=== PATIENT | female | born 1990 | race Caucasian/White ===

== ENCOUNTER 2017-12-10 06:22 | Inpatient (IN) | payer MEDICARE, MEDICAID ==
[2017-12-09 12:19] LABS: BASOPHILS 0.1 % (0-2); EOSINOPHILS 0.7 % (0-7); HEMATOCRIT 32.5 % (36.0-48.0); HEMOGLOBIN 10.7 g/dL (12-16); IMMATURE GRANULOCYTES 0.5 % (0-5); LYMPHOCYTES 21.4 % (15-50); MCH 28.5 pg (26.0-34.0); MCHC 32.9 g/dL (31.0-37.0); MCV 86.7 fL (80.0-100.0); MEAN PLATELET VOLUME 11.9 fL (7.4-10.4); MONOCYTES 7.8 % (2-11); NEUTROPHILS 69.5 % (40-80); RBC 3.75 10x6/uL (4.00-5.40); RDW 13.5 % (11.5-14.5); WBC 8.1 10x3/uL (4.8-10.8)
[2017-12-09 12:29] LABS: PLATELET COUNT 179 10x3/uL (130-400)
[~2017-12-10] VITALS: Ht 162.6 cm; Wt 137.0 kg
--- NOTE | ~2017-12-10 | DS ---
PATIENT:ROMEO KING :89 MEDICAL RECORD: [id number] DISCHARGE SUMMARY ADMISSION DATE: 12/10/17 DISCHARGE DATE: DATE OF ADMISSION: 12/10/2017. DATE OF DISCHARGE: 12/12/2017. ADMISSION DIAGNOSES: 1. at term. 2. History of prior section. DISCHARGE DIAGNOSES: 1. Mother delivered at term. 2. History of prior section. 3. Spinal headache. PROCEDURES PERFORMED: 1. Repeat low transverse section. 2. Blood patch (pending). ATTENDING: Domingo Gomez MD. HISTORY OF PRESENT ILLNESS: See the H&P in the chart. SUMMARY OF HOSPITALIZATION: The patient was admitted to the hospital and underwent a section. The patient had multiple attempts for spinal. At the time of discharge, the patient is reporting a headache increased while up and moving. The patient has been evaluated and blood patch is pending. The patient will receive Percocet and Motrin for her postoperative pain. The incision is clean, dry and intact at this time. The patient will follow up in 2 weeks for an incision check at [facility]. Standard post- and postoperative precautions have been reviewed. TRANSINT:[id number] Voice Confirmation ID: [id number] DOCUMENT ID: [id number] DOMINGO GOMEZ MD at 1609 CC: [id number] DICTATION DATE: 12/12/17 1329 CHANGE MANAGEMENT ANALYST: 12/12/17 1342 ADM IN [facility] [place] [id number] [place] [address]
--- NOTE | ~2017-12-10 | OP ---
PATIENT NAME: ROMEO KING MEDICAL RECORD: [id number] :89 LOCATION:[id number] ADMISSION DATE:12/10/17 SURGEON: CONRAD YORK MD DATE OF OPERATION: 12/10/2017 PREOPERATIVE DIAGNOSES: 1. at 39 and 2 weeks gestational age. 2. History of prior section. POSTOPERATIVE DIAGNOSES: 1. Mother delivered at 39 and 2 weeks. 2. History of section. PROCEDURE: Repeat low transverse section. SURGEON: Conrad York MD LITERACY COACH: Dr. Lanier. ANESTHESIA: Spinal, SCREW EYE ASSEMBLER is Renetta Bryant. FINDINGS: Viable , vertex presentation, Apgars 9 and 9, weight 8 pounds 11 ounces. Unremarkable uterus, tubes, and ovaries bilaterally. SPECIMEN REMOVED: Placenta. SPECIMEN DISPOSITION: Discarded. Urine output 200 cc of clear urine. FLUIDS: 2 liters of lactated Ringer's. ESTIMATED BLOOD LOSS: 750 to 800 cc. COMPLICATIONS: None. DRAINS: Crook to gravity. INDICATIONS: The patient is a 27-year-old parous female with a prior history of section. The patient is 39 weeks and 2 days and consented for repeat low transverse section. The patient understands risks and benefits of this procedure as well as limitations. DESCRIPTION OF PROCEDURE: After informed consent was assured, the patient was taken to the operating room where anesthetic was obtained. The patient was placed in a leftward lateral tilt and prepped and draped. An incision was made over the old scar after assessing the adequacy of the anesthetic. This incision was carried down to the underlying layer of the fascia with a scalpel and the fascia opened in the midline. The fascial opening was extended laterally with Ortega scissors and the peritoneum was entered bluntly. Peritoneal opening was extended with Ortega and Metzenbaum scissors. Rectus bellies were and a DeLee all-purpose retractor was inserted. The fascia was dissected free of the rectus bellies prior to entering the abdomen. A low transverse hysterotomy was performed and the was delivered onto the abdomen atraumatically. The cord was doubly clamped and cut and the was passed to the awaiting attendant. Placenta was delivered via Crede maneuver and the uterus was now exteriorized and cleared of all clot and debris. The hysterotomy was closed in OPERATIVE REPORT [id number] CHRISTINE,ROMEO LV a running-locked fashion with #1 chromic. After this had been performed, the uterus was returned to the abdomen and the abdomen was irrigated. Adequate hemostasis was achieved. The peritoneum was reapproximated with a loose stitch of chromic. Rectus bellies were inspected and found to be hemostatic. The looped PDS was now used to close the fascia. Subcutaneous tissues inspected. Bleeding vessels cauterized and the skin reapproximated with a subcuticular stitch. TRANSINT:[id number] Voice Confirmation ID: [id number] DOCUMENT ID: [id number] CONRAD YORK MD at 1700 CC: [id number] DICTATION DATE: 12/10/17 1143 BEHAVIOR CLINICIAN: 12/10/17 1242 ADM IN [facility] [address] [place] [address]
[2017-12-10 06:15] LABS: RAPID PLASMA REAGIN Non Reactive (Non Reactive)
[2017-12-10 06:47] VITALS: BP 139/63; BMI 51.9
[2017-12-10 08:00] LABS: APTT 28.1 SECONDS (22.8-39.4); INR 1.02 (0.85-1.17)
[2017-12-10 13:22] VITALS: BP 139/79
[2017-12-10 13:42] VITALS: Ht 162.6 cm; Wt 137.0 kg
[2017-12-10 13:43] VITALS: BP 131/63
[2017-12-10 13:57] VITALS: BP 118/71
[2017-12-10 14:12] VITALS: BP 130/61
[2017-12-10 23:28] VITALS: BP 121/65
[2017-12-11 04:00] VITALS: BP 126/60
[2017-12-11 09:30] VITALS: BP 125/64
[2017-12-11 19:30] VITALS: BP 121/57
[2017-12-12 04:00] VITALS: BP 114/67
[2017-12-12 08:10] VITALS: BP 130/75
[2017-12-12] MEDS ORDERED: PERCOCET 5-3251 TAB PO (17:53)
[2017-12-12] MEDS ORDERED: IBUPROFEN800 MG (17:54)
== END 2017-12-12 18:30 | disposition home or self-care (01) | DRG 766 ==
LOC: D.LD 06:22 → D.WS 13:03 → D.LD 13:13
PROVIDERS: Obstetrics & Gynecology
PROC: 10D00Z1 Extraction of Products of Conception, Low, Open Approach (ICD-10-PCS; principal; 2017-12-10 09:00)
PROC: 3E0R3GC Introduction of Other Therapeutic Substance into Spinal Canal, Percutaneous Approach (ICD-10-PCS; 2017-12-12)
DX: O34.211 Maternal care for low transverse scar from previous cesarean delivery (principal); Z3A.39 39 weeks gestation of pregnancy; Z37.0 Single live birth; O89.4 Spinal and epidural anesthesia-induced headache during the puerperium